=== PATIENT | male | born 1990 | race Caucasian/White ===

== ENCOUNTER 2019-09-11 12:52 | Outpatient (CLI) | payer OTHER | END 2019-09-11 12:56 | disposition home or self-care (01) | LOC: MRI 12:52 | PROVIDERS: ATTEND Physical Medicine & Rehabilitation | DX: M54.2 Cervicalgia (principal); M54.12 Radiculopathy, cervical region; M75.40 Impingement syndrome of unspecified shoulder | CPT/HCPCS: 72141 ==